=== PATIENT | male | born 1950 | race Caucasian/White ===

== ENCOUNTER 2020-08-31 00:10 | Emergency (ER) | payer OTHER ==
[~2020-08-31] VITALS: Ht 162.6 cm; Wt 70.3 kg
[2020-08-31] MEDS ORDERED: COQ-1030 MG PO (00:28)
[2020-08-31] MEDS ORDERED: FISH OIL 1,0001 EAC2 NG (00:28)
[2020-08-31] MEDS ORDERED: SIMVASTATIN5 MG PO (00:28)
[2020-08-31] MEDS ORDERED: COZAAR50 MG PO (00:29)
[2020-08-31] MEDS ORDERED: GUAIFENESIN AC473 ML PO (02:19)
[2020-08-31] MEDS ORDERED: ONDANSETRON ODT8 MG PO (02:19)
--- NOTE | 2020-09-02 13:51 | EKG ---
[facility] [address] [place] [address] Signed Normal sinus rhythm with sinus arrhythmia Normal ECG When compared with ECG of 31-AUG-2020 00:20, (Unconfirmed) Previous ECG has undetermined rhythm, needs review Confirmed by TONY VELASCO MD ([id number]) on 09/02/2020 1:51:13 PM Electronically Signed By: TONY VELASCO MD 09/02/20 1351 PATIENT NAME: CHARU BETANCOURT Electrocardiogram DATE OF : 50 PHYSICIAN: TONY VELASCO MD REPORT #: [id number] REPORT IS CONFIDENTIAL AND NOT TO BE RELEASED WITHOUT AUTHORIZATION
== END 2020-08-31 02:54 | disposition home or self-care (01) ==
LOC: ED 00:10
DX: J18.9 Pneumonia, unspecified organism (principal); Z20.828 Contact with and (suspected) exposure to other viral communicable diseases; I10 Essential (primary) hypertension; E78.5 Hyperlipidemia, unspecified; Z88.8 Allergy status to other drugs, medicaments and biological substances; Z79.899 Other long term (current) drug therapy
CPT/HCPCS: 71045; 80053; 83605; 85025; 94664; 99285-25; C9803; U0003